=== PATIENT | female | born 1940 | race Caucasian/White ===

== ENCOUNTER → 2018-01-24 16:26 | Outpatient (REF) | payer MEDICARE, OTHER, SELFPAY ==
[2018-01-24 16:34] LABS: Basophils # 0.1 K/mm3 (0-0.2); Basophils % 0.8 % (0.1-2.0); Eosinophils # 0.3 K/mm3 (0.0-0.4); Eosinophils % 3.3 % (0.1-12.0); Hematocrit 45.6 % (37.0-47.0); Hemoglobin 14.5 g/dL (12.2-16.2); Lymphocytes # 2.8 K/mm3 (0.7-4.5); Lymphocytes % 37.1 K/mm3 (10-50); Mean Corpuscular HGB Conc 31.9 g/dL (31.8-35.4); Mean Corpuscular Hemoglobin 29.6 pg (27.0-31.2); Mean Corpuscular Volume 92.8 fl (81-99); Mean Platelet Volume 7.3 fl (7.4-10.4); Monocytes # 0.5 K/mm3 (0.1-1.0); Monocytes % 6.3 % (1.7-9.3); Neutrophils # 3.9 K/mm3 (1.8-7.8); Neutrophils % 52.5 % (37.0-80.0); Platelet Count 324 K/mm3 (142-424); Red Blood Count 4.91 M/mm3 (4.20-5.40); Red Cell Distribution Width 12.8 % (11.5-17.5); White Blood Count 7.5 K/mm3 (4.8-10.8)
[2018-01-24 18:17] LABS: Alanine Aminotransferase 25 U/L (12-78); Albumin Level 3.8 gm/dL (3.4-5.0); Albumin/Globulin Ratio 1.3 (1.1-1.8); Alkaline Phosphatase 90 U/L (46-116); Anion Gap 11.1 mEq/L (5-15); Aspartate Amino Transferase 15 U/L (15-37); Bilirubin,Total 0.5 mg/dL (0.2-1.0); Blood Urea Nitrogen 15 mg/dL (7-18); Calcium 10.2 mg/dL (8.5-10.1); Carbon Dioxide 30 mmol/L (21.0-32.0); Chloride 105 mmol/L (98-107); Chol/HDL Ratio 2.3 (1-3.5); Cholesterol 198 mg/dL (140-200); Creatinine,Serum 0.85 mg/dL (0.55-1.02); Estimated Glomerular Filt Rate 65 ml/min (>60); GFR (African American) 78 ML/MIN (>60); Globulin 2.9 gm/dl (1.3-3.2); Glucose 90 mg/dL (74-106); HDL Cholesterol 87 mg/dL (29-89); LDL Cholesterol 85 mg/dL (0-130); Potassium 4.1 mmoL/L (3.5-5.1); Sodium 142 mmol/L (136-145); Thyroid Stimulating Hormone 1.32 uIU/ml (0.358-3.740); Total Protein,Serum 6.7 gm/dL (6.4-8.2); Triglycerides 128 mg/dL (30-200); VLDL Cholesterol 26 mg/dL (0-40)
== END ==
LOC: LAB 16:26
PROVIDERS: Visit Provider Internal Medicine
DX: I10 Essential (primary) hypertension (principal); J44.9 Chronic obstructive pulmonary disease, unspecified; K21.9 Gastro-esophageal reflux disease without esophagitis; M15.0 Primary generalized (osteo)arthritis; E78.5 Hyperlipidemia, unspecified
CPT/HCPCS: 80053; 80061; 84443; 85025

== ENCOUNTER → 2019-06-10 16:51 | Outpatient (CLI) | payer MEDICARE, OTHER, SELFPAY ==
[2019-06-10 17:03] LABS: Basophils # 0.1 K/mm3 (0-0.2); Eosinophils # 0.2 K/mm3 (0.0-0.4); Eosinophils % 2.5 % (0.1-12.0); Hematocrit 44.4 % (37.0-47.0); Hemoglobin 14.5 g/dL (12.2-16.2); Lymphocytes # 2.6 K/mm3 (0.7-4.5); Lymphocytes % 35.3 % (10-50); Mean Corpuscular HGB Conc 32.7 g/dL (31.8-35.4); Mean Corpuscular Hemoglobin 30.7 pg (27.0-31.2); Mean Corpuscular Volume 93.9 fl (81-99); Mean Platelet Volume 7.6 fl (7.4-10.4); Monocytes # 0.5 K/mm3 (0.1-1.0); Monocytes % 6.7 % (1.7-9.3); Neutrophils % 54.6 % (37.0-80.0); Platelet Count 335 K/mm3 (142-424); Red Blood Count 4.73 M/mm3 (4.20-5.40); Red Cell Distribution Width 12.8 % (11.5-17.5); White Blood Count 7.3 K/mm3 (4.8-10.8)
[2019-06-10 18:02] LABS: Alanine Aminotransferase 16 U/L (12-78); Albumin Level 3.8 gm/dL (3.4-5.0); Albumin/Globulin Ratio 1.3 (1.1-1.8); Alkaline Phosphatase 77 U/L (46-116); Anion Gap 4.1 mEq/L (5-15); Aspartate Amino Transferase 12 U/L (15-37); Bilirubin,Total 0.5 mg/dL (0.2-1.0); Blood Urea Nitrogen 22 mg/dL (7-18); Calcium 10.2 mg/dL (8.5-10.1); Carbon Dioxide 28 mmol/L (21.0-32.0); Chloride 108 mmol/L (98-107); Cholesterol 196 mg/dL (140-200); Creatinine,Serum 0.95 mg/dL (0.55-1.02); Estimated Glomerular Filt Rate 57 ml/min (>60); GFR (African American) 69 ML/MIN (>60); Globulin 2.9 gm/dl (1.3-3.2); Glucose 86 mg/dL (74-106); HDL Cholesterol 96 mg/dL (29-89); LDL Cholesterol 85 mg/dL (0-130); Potassium 4.1 mmoL/L (3.5-5.1); Sodium 136 mmol/L (136-145); Thyroid Stimulating Hormone 2.25 uIU/ml (0.358-3.740); Total Protein,Serum 6.7 gm/dL (6.4-8.2); Triglycerides 77 mg/dL (30-200); VLDL Cholesterol 15 mg/dL (0-40)
== END ==
PROVIDERS: Visit Provider Internal Medicine
DX: I10 Essential (primary) hypertension (principal); E66.9 Obesity, unspecified; R53.83 Other fatigue; E78.5 Hyperlipidemia, unspecified; K21.9 Gastro-esophageal reflux disease without esophagitis; J44.9 Chronic obstructive pulmonary disease, unspecified; M17.0 Bilateral primary osteoarthritis of knee
CPT/HCPCS: 80053; 80061; 84443; 85025

== ENCOUNTER → 2019-06-25 16:05 | Outpatient (CLI) | payer MEDICARE, OTHER, SELFPAY ==
--- NOTE | 2019-06-25 16:11 | CA_ITS ---
APPROVED REPORT Bilateral Lower Extremity Venous Study for Pharmacy Salesperson: CT Indications Lower Extremity Pain: Right Vein Imaging CFV (L): compressive, spontaneous, phasic, augmentation FEM (L): compressive, spontaneous, phasic, augmentation POP (L): compressive, spontaneous, phasic, augmentation DFV (L): compressive, spontaneous, phasic, augmentation PTV (L): compressive, spontaneous, phasic, augmentation GSV (L): compressive, spontaneous, phasic, augmentation SSV (L): compressive, spontaneous, phasic, augmentation Peroneals (L):compressive, spontaneous, phasic, augmentation GAS (L): compressive, spontaneous, phasic, augmentation Findings No evidence of DVT or superficial thrombophlebitis in the veins scanned of the right lower extremity. Non-vascularized cystic structure visualized in the right popliteal fossa measuring approximately 4.8 cm C/W a ibanez's cyst. Conclusion No evidence of DVT or superficial thrombophlebitis in the veins scanned of the right lower extremity. Non-vascularized cystic structure visualized in the right popliteal fossa measuring approximately 4.8 cm C/W a ibanez's cyst. Critical Notification Critical Value: No Physician Notified Date: 06/25/2019 Time: 16:50 Physician Name: Khurram Response Time: 16:50 Report Read Back Electronically signed by : Daren Hammonds MD 06/26/2019 19:04:18
== END ==
PROVIDERS: PCP Internal Medicine; Visit Provider Internal Medicine
DX: M79.604 Pain in right leg (principal); M79.651 Pain in right thigh
CPT/HCPCS: 93971

== ENCOUNTER 2020-08-03 14:53 | Emergency (ER) | payer MEDICARE, OTHER, SELFPAY ==
[2020-08-03 15:10] VITALS: BP 145/85; PULSE 83; RESP 18; TEMP 36.9; O2SAT 97; BMI 30.1
--- NOTE | 2020-08-03 15:20 | HMH.EDUTC ---
[facility] [place] Clinical Impression: Bronchitis, Exposure to COVID-19 virus Disposition: Home, Self-Care Condition on Discharge: Good Instructions: Preventing the Spread of Coronavirus Discharge Instructions Additional Instructions: Drink plenty of fluids. Take tylenol or ibuprofen for pain or fever. Take the medications as directed. Follow up with your regular doctor. GO TO THE ER FOR ANY WORSENING SYMPTOMS Prescriptions: Benzonatate [Tessalon Perle 100mg Cap] 100 mg PO TIDP PRN #30 cap PRN Reason: Cough Transmission Status: Received by [facility] # Azithromycin [Z-Kenneth 250mg Tab*] 250 mg PO UD DOSE PK #6 tab Transmission Status: Received by [facility] # Referrals: Albert Paulson [Primary Care Provider] - Time of Disposition: 15:37 Medical Decision Making - Medical Records Medical records reviewed: No: I reviewed the patient's medical records. - Siddharth Inquiry Pt receiving controlled substance: No Vital Signs: 08/03/20 15:10 08/03/20 15:44 Temperature 98.5 F 98.5 F Temperature Source Oral Pulse Rate 83 Pulse Rate [Right Brachial] 83 Respiratory Rate 18 18 Blood Pressure 145/85 H Blood Pressure [Right Arm] 145/85 H Blood Pressure Mean [Right Arm] 105 Blood Pressure Source [Right Arm] Automatic Cuff Blood Pressure Position [Right Arm] Sitting 02 Sat by Pulse Oximetry 97 Oxygen Delivery Method Room Air Orders (Tests/Meds): ORDERS Category Date Time Status Covid-19 Nasal PCR Sendout Víctor Routine Lab 08/03/20 15:10 Received [facility] [place] - General Stated complaint: covid test Time Seen by Provider: 08/03/20 15:20 - History of Present Illness Provider Complaint: She c/o 1 week of cough, malaise, sinus congestion. 2 of her grand daughters have covid right now. - Related Data Home Medications Medication Instructions Recorded Confirmed Amlodipine Besylate [Amlodipine 5 mg PO DAILY 06/24/19 06/24/19 5mg tab] Lisinopril/Hydrochlorothiazide 1 tab PO DAILY 06/24/19 06/24/19 [Lisinopril-Hctz 20-25 mg Tab*] Naproxen 500 mg PO BIDP PRN 06/24/19 06/24/19 Previous Rx's Medication Instructions Recorded predniSONE [Prednisone 20mg 20 mg PO BID 4 Days #8 tab 06/24/19 Tab] Azithromycin [Z-Kenneth 250mg Tab*] 250 mg PO UD DOSE PK #6 tab 08/03/20 Benzonatate [Tessalon Perle 100mg 100 mg PO TIDP PRN #30 cap 08/03/20 Cap] Allergies Allergy/AdvReac Type Severity Reaction Status Date / Time codeine Allergy Verified 08/03/20 15:27 [facility] History - Hepatitis A Screen Attestation statement:: This patient has been screened for Hepatitis A risk factors. I have reviewed the patient's past medical history: Yes - Social History Smoking Status: Current every day smoker Tobacco Type: cigarettes # Packs/Day (cigarettes): 1 Alcohol Intake: never Occupational Status: other ROS Obtained: Yes All systems reviewed & no additional complaints - Constitutional Constitutional: Reports system reviewed and no additional complaints, except as docu - Eyes Eyes: Reports system reviewed and no additional complaints, except as docu - ENT Ears, Nose, Mouth, and Throat: Reports system reviewed and no additional complaints, except as docu - Cardiovascular Cardiovascular: Reports system reviewed and no additional complaints, except as docu - Respiratory Respiratory: Yes system reviewed and no additional complaints, except as docu - Gastrointestinal Gastrointestingal: Reports: system reviewed and no additional complaints, except as docu Physical Exam - General General appearance: alert, in no apparent distress - Head Head exam: atraumatic, normocephalic, normal inspection - Eye Eye exam: Present: normal appearance, PERRL, EOMI - ENT ENT exam: Present: normal exam, normal oropharynx, mucous membranes moist, TM's normal bilaterally, normal external ear exam - Neck Neck exam: Present: normal inspection, full ROM, tra
[2020-08-03 15:44] VITALS: BP 145/85; PULSE 83; RESP 18; TEMP 36.9; O2SAT 97
[2020-08-06 10:23] LABS: Covid-19 Nasal PCR Sendout Lex Positive
--- NOTE | 2020-08-06 11:03 | PC.NURSE ---
PT NOTIFIED OF POSITIVE COVID RESULTS
== END 2020-08-03 15:49 | disposition home or self-care (01) ==
PROVIDERS: Emergency Provider Nurse Practitioner Family; PCP Internal Medicine
DX: U07.1 COVID-19 (principal); F17.210 Nicotine dependence, cigarettes, uncomplicated
CPT/HCPCS: 99201; U0004

== ENCOUNTER 2020-08-10 11:02 | Outpatient (CLI) | payer MEDICARE, OTHER, SELFPAY ==
[2020-08-10] VITALS (9 sets, daily range): BP systolic 117–178; BP diastolic 32–84; PULSE 61–75; RESP 15–20; TEMP 36.7–36.8; O2SAT 92–98
--- NOTE | 2020-08-10 11:46 | PC.NURSE ---
Infusion started at this time time. No issues at this time.
--- NOTE | 2020-08-10 12:45 | PC.NURSE ---
infusion completed, no distress noted at this time. Pt tolerated well.
--- NOTE | 2020-08-10 13:48 | PC.NURSE ---
Pt tolerated well. Denies any issues at this time. States that her nose, face and feet feel alot warmer.
== END 2020-08-10 13:47 | disposition home or self-care (01) ==
PROVIDERS: PCP Internal Medicine; Visit Provider Internal Medicine
DX: U07.1 COVID-19 (principal)
CPT/HCPCS: 96365

== ENCOUNTER → 2021-04-21 15:49 | Outpatient (CLI) | payer MEDICARE, OTHER, SELFPAY ==
[2021-04-21 16:10] LABS: Basophils # 0.1 K/mm3 (0-0.2); Basophils % 1.2 % (0.1-2.0); Eosinophils # 0.2 K/mm3 (0.0-0.4); Eosinophils % 2.4 % (0.1-12.0); Hematocrit 44.1 % (37.0-47.0); Hemoglobin 14.3 g/dL (12.2-16.2); Lymphocytes # 2.8 K/mm3 (0.7-4.5); Mean Corpuscular HGB Conc 32.5 g/dL (31.8-35.4); Mean Corpuscular Hemoglobin 30.9 pg (27.0-31.2); Mean Corpuscular Volume 95.1 fl (81-99); Mean Platelet Volume 8.7 fl (7.4-10.4); Monocytes # 0.5 K/mm3 (0.1-1.0); Monocytes % 6.5 % (1.7-9.3); Neutrophils # 4.5 K/mm3 (1.8-7.8); Neutrophils % 54.9 % (37.0-80.0); Platelet Count 414 K/mm3 (142-424); Red Blood Count 4.64 M/mm3 (4.20-5.40); Red Cell Distribution Width 13.2 % (11.5-17.5); White Blood Count 8.1 K/mm3 (4.8-10.8)
== END ==
PROVIDERS: Visit Provider Internal Medicine
DX: R53.83 Other fatigue (principal)
CPT/HCPCS: 85025

== ENCOUNTER → 2022-07-04 13:55 | Outpatient (CLI) | payer MEDICARE, OTHER, SELFPAY ==
[2022-07-04 16:13] LABS: Basophils # 0.1 K/mm3 (0-0.2); Basophils % 1.2 % (0.1-2.0); Eosinophils # 0.1 K/mm3 (0.0-0.4); Hematocrit 45.4 % (37.0-47.0); Hemoglobin 14.2 g/dL (12.2-16.2); Lymphocytes # 2.4 K/mm3 (0.7-4.5); Lymphocytes % 34.9 % (10-50); Mean Corpuscular HGB Conc 31.2 g/dL (31.8-35.4); Mean Corpuscular Hemoglobin 30.4 pg (27.0-31.2); Mean Corpuscular Volume 97.4 fl (81-99); Mean Platelet Volume 8.3 fl (7.4-10.4); Monocytes # 0.4 K/mm3 (0.1-1.0); Monocytes % 5.5 % (1.7-9.3); Neutrophils # 3.9 K/mm3 (1.8-7.8); Neutrophils % 56.3 % (37.0-80.0); Platelet Count 381 K/mm3 (142-424); Red Blood Count 4.66 M/mm3 (4.20-5.40); White Blood Count 6.9 K/mm3 (4.8-10.8)
[2022-07-04 17:22] LABS: Alanine Aminotransferase 16 U/L (12-78); Albumin Level 4.1 g/dl (3.5-5.0); Albumin/Globulin Ratio 1.7 (1.1-1.8); Alkaline Phosphatase 113 U/L (38-126); Anion Gap 16.3 mEq/L (5-15); Aspartate Amino Transferase 27 U/L (14-36); Bilirubin,Total 0.4 mg/dl (0.2-1.3); Blood Urea Nitrogen 29 mg/dl (7-17); Calcium 10.4 mg/dl (8.4-10.2); Carbon Dioxide 29 mmol/L (22.0-30.0); Chloride 99 mmol/L (98-107); Cholesterol 207 mg/dl (140-200); Estimated Glomerular Filt Rate 53 ml/min (>60); GFR (African American) 64 ML/MIN (>60); Globulin 2.4 g/dL (1.3-3.2); Glucose 92 mg/dl (74-100); HDL Cholesterol 102 mg/dl (40-60); Potassium 4.3 mmoL/L (3.5-5.1); Sodium 140 mmol/L (136-145); Total Protein,Serum 6.5 g/dl (6.3-8.2); Triglycerides 82 mg/dl (30-150); VLDL Cholesterol 16 mg/dL (0-40)
[2022-07-04 17:33] LABS: Direct LDL Cholesterol 71.02 mg/dL (100-129)
== END ==
PROVIDERS: PCP Internal Medicine; Visit Provider Internal Medicine
DX: I10 Essential (primary) hypertension (principal); E78.5 Hyperlipidemia, unspecified; J44.9 Chronic obstructive pulmonary disease, unspecified; M15.0 Primary generalized (osteo)arthritis
CPT/HCPCS: 80053; 80061; 85025

== ENCOUNTER → 2022-08-16 15:33 | Outpatient (CLI) | payer MEDICARE, OTHER, SELFPAY ==
[2022-08-16 17:35] LABS: Blood Urea Nitrogen 29 mg/dl (7-17); Calcium 10.2 mg/dl (8.4-10.2); Carbon Dioxide 27 mmol/L (22.0-30.0); Chloride 104 mmol/L (98-107); Estimated Glomerular Filt Rate 47 ml/min (>60); GFR (African American) 57 ML/MIN (>60); Glucose 95 mg/dl (74-100); Sodium 139 mmol/L (136-145)
[2022-08-16 18:58] LABS: Ferritin 48.6 ng/ml (11.1-264)
== END ==
PROVIDERS: PCP Internal Medicine; Visit Provider Internal Medicine
DX: Z20.822 Contact with and (suspected) exposure to COVID-19 (principal); E83.52 Hypercalcemia; Z83.49 Family history of other endocrine, nutritional and metabolic diseases; D64.9 Anemia, unspecified
CPT/HCPCS: 80048; 82728; C9803; U0003; U0005

== ENCOUNTER → 2023-05-10 15:11 | Outpatient (CLI) | payer MEDICARE, OTHER, SELFPAY ==
--- NOTE | 2023-05-10 15:33 | XR_ITS ---
FINAL REPORT CLINICAL HISTORY: near syncope/dyspnea/abnl ecg/dizziness/palpitatio smoker x 60 years soa x 3 years FINDINGS: Cardiac silhouette measures at the upper limits of normal in size. Mild chronic changes are seen in both lungs. No localized infiltrates or effusions. IMPRESSION: 1. No evidence of acute infiltrate. Authenticated and ERN
[2023-05-10 15:45] LABS: Basophils # 0.1 K/mm3 (0-0.2); Basophils % 0.8 % (0.1-2.0); Eosinophils # 0.2 K/mm3 (0.0-0.4); Eosinophils % 2.2 % (0.1-12.0); Hematocrit 47.1 % (37.0-47.0); Lymphocytes # 2.3 K/mm3 (0.7-4.5); Lymphocytes % 33.7 % (10-50); Mean Corpuscular HGB Conc 31.9 g/dL (31.8-35.4); Mean Corpuscular Hemoglobin 30.3 pg (27.0-31.2); Mean Corpuscular Volume 95.2 fl (81-99); Mean Platelet Volume 7.3 fl (7.4-10.4); Monocytes # 0.4 K/mm3 (0.1-1.0); Monocytes % 5.7 % (1.7-9.3); Neutrophils # 3.9 K/mm3 (1.8-7.8); Neutrophils % 57.5 % (37.0-80.0); Platelet Count 290 K/mm3 (142-424); Red Blood Count 4.94 M/mm3 (4.20-5.40); Red Cell Distribution Width 13.2 % (11.5-17.5); White Blood Count 6.8 K/mm3 (4.8-10.8)
[2023-05-10 16:50] LABS: Chloride 106 mmol/L (98-107); Potassium 3.9 mmoL/L (3.5-5.1); Sodium 139 mmol/L (136-145)
[2023-05-10 16:52] LABS: Blood Urea Nitrogen 19 mg/dl (7-17); Estimated Glomerular Filt Rate 60 ml/min (>60); GFR (African American) 72 ML/MIN (>60)
[2023-05-10 16:53] LABS: Alanine Aminotransferase 22 U/L (12-78); Albumin Level 3.9 g/dl (3.5-5.0); Alkaline Phosphatase 87 U/L (38-126); Anion Gap 10.9 mEq/L (5-15); Aspartate Amino Transferase 33 U/L (14-36); Bilirubin,Direct 0.3 mg/dl (0.0-0.4); Bilirubin,Indirect 0.2 mg/dL (0.0-0.9); Bilirubin,Total 0.5 mg/dl (0.2-1.3); Bilirubin,Unconjugated 0.2 mg/dL (0.0-1.1); Calcium 9.6 mg/dl (8.4-10.2); Carbon Dioxide 26 mmol/L (22.0-30.0); Cholesterol 222 mg/dl (140-200); Glucose 96 mg/dl (74-100); Total Protein,Serum 6.2 g/dl (6.3-8.2); Triglycerides 126 mg/dl (30-150); VLDL Cholesterol 25 mg/dL (0-40)
[2023-05-10 16:54] LABS: Magnesium 1.8 mg/dl (1.6-2.3)
[2023-05-10 17:05] LABS: Direct LDL Cholesterol 82.56 mg/dL (100-129)
[2023-05-10 17:12] LABS: Free T4 (Free Thyroxine) 1.24 ng/dl (0.78-2.19)
[2023-05-10 17:28] LABS: Thyroid Stimulating Hormone 1.53 uIU/mL (0.465-4.68)
[2023-05-10 18:24] LABS: Chol/HDL Ratio 2.5 (1-3.5); HDL Cholesterol 90 mg/dl (40-60)
== END ==
PROVIDERS: PCP Internal Medicine; Visit Provider Physician Assistant
DX: R00.2 Palpitations (principal); R06.00 Dyspnea, unspecified; R42 Dizziness and giddiness; R55 Syncope and collapse; R94.31 Abnormal electrocardiogram [ECG] [EKG]; I10 Essential (primary) hypertension
CPT/HCPCS: 36415; 71046; 80048; 80061; 80076; 83735; 84439; 84443; 85025; 93225

== ENCOUNTER 2023-05-22 11:52 | Outpatient (CLI) | payer MEDICARE, OTHER, SELFPAY ==
[2023-05-22] VITALS (9 sets, daily range): BP systolic 99–194; BP diastolic 53–97; PULSE 46–65; RESP 16–17; TEMP 36.6; O2SAT 98–100; BMI 28.8
--- NOTE | 2023-05-22 11:53 | CT_ITS ---
APPROVED REPORT Exchange Clerk: CLINICAL INDICATION Chest Pain TECHNIQUE Image Acquisition: A 128 slice MDCT scanner ([employer]) was used for data acquisition. A noncontrast coronary calcium scan was performed. Bolus tracking in the ascending aorta with a threshold of 180 HU was performed. Immediately afterwards, ECG synchronized cardiac CT was then performed from the cardiac base to apex using retrospective gating with ECG tube current modulation. A total of 85 mL of Isovue 370 mg/mL contrast medium was administered at 5 mL/sec followed by a saline flush using a biphasic injection protocol. A tube voltage of 120 KVp was used. The patient received the following medications prior to the cardiac CT. 50 mg of oral metoprolol 5 mg of intravenous metoprolol. 0.8 mg of sublingual nitroglycerin. The average heart rate at the time of acquisition was 46 bpm and regular. Image Reconstruction Transaxial images were reconstructed at 0.67 mm slide thickness. Data was reviewed interactively on an advanced workstation capable of 2 and 3-dimensional displays in all conventional reconstruction formats, including multiplanar reformations, maximum intensity projections, curved multiplanar reformations, and volume rendered reconstructions. When applicable, selected routine images describing the relevant coronary anatomy and pathology were saved and sent to PACS. Complications None Technical Quality Overall image quality was good. Coronary artery opacification was adequate. Total DLP (Dose-Length Product) is 1428.7 mGy-cm. The reported value represents the total of one or more individual components during the CT acquisition of this date and at this time, and as such, the same value may appear in more than one CT report depending on the interpreting/reporting physicians. COMPARISON None FINDINGS CT Coronary Calcium Scoring LMA (Left Main Artery) = 45 LAD (Left Anterior Descending) = 0 LCX (Left Coronary Circumflex) = 0 RCA (Right Coronary Artery) = 29 Total Calcium Score = 73 using the AJ-130 method. The observed calcium score of 73 is at 35 percentile for subjects of the same age, sex, and race/ethnicity. The interpretation of the calcium heart score is based on the following continuum*: 0 = no calcified plaque detected (risk of coronary artery disease is very low ??? less than 5%) 1-10 = calcium detected in extremely minimal levels (risk of coronary diseases is still low ??? less than 10%) 11-100 = mild levels of plaque detected with certainty (mild or minimal narrowing of heart arteries is likely) 101-400 = definite,at least moderate levels of plaque detected (relatively high risk of a heart attack within 3-5 years) >401-999 = extensive levels of plaque detected (high risk of heart attack, high levels of vascular disease are present, high likelihood of at least one significant coronary narrowing) *The calcium heart score quantifies the burden of coronary calcification/plaque in the coronary arteries. The calcium heart score is not able to evaluate the presence or burden of non-calcified (i.e. soft) plaque. There is identifiable calcification in the ascending and descending aorta, as well as aortic valve. No identifiable calcification of the mitral annulus or mitral valve, pericardium, or myocardium. Coronary CT Angiography Coronaries have normal origin and proximal course. The coronary arterial system is right dominant. Note: Stenosis is reported as maximum percentage diameter stenosis. Stenosis grading is reported using the following scheme: Quantitative Stenosis Grading: Left Main (LM): The left main originates normally from the left sinus of Valsalva. The LM bifurcates into the left anterior descending artery and le
== END 2023-05-22 14:20 | disposition home or self-care (01) ==
PROVIDERS: PCP Internal Medicine; Visit Provider Physician Assistant
DX: R00.2 Palpitations (principal); R42 Dizziness and giddiness; R55 Syncope and collapse; R94.31 Abnormal electrocardiogram [ECG] [EKG]; R06.09 Other forms of dyspnea; I25.10 Atherosclerotic heart disease of native coronary artery without angina pectoris
CPT/HCPCS: 75574; Q9967

== ENCOUNTER → 2023-06-01 14:54 | Outpatient (CLI) | payer MEDICARE, OTHER, SELFPAY ==
--- NOTE | 2023-06-01 14:59 | CA_ITS ---
APPROVED REPORT EXAM: Comprehensive 2D, Doppler, and color-flow Echocardiogram Wire Mesh Filter Fabricator: Berna Marquis RVT Ht: 5 ft 4 in Wt: 163lbs BSA: 1.79 BP: 113/83 mmHg Indications: NEAR SYNCOPE,PALPS,ABN EKG,DIZZINESS 2D Dimensions LVOT 2.18 cm (M/F) 1.5-2.5 LA Volume 39.60 mL LA Volume Index 22.12 mL/m2 (M/F) 16-34 M-Mode Dimensions RVDd 2.66 cm (0.9-2.6) LA Diam 4.00 cm (1.9-4.0) LVDd 4.18 cm (3.5-5.7) Ao Diam 3.24 cm (2.0-3.7) LVDs 2.85 cm (3.5-5.7) IVSd 0.76 cm (0.6-1.1) PWd 0.61 cm (0.6-1.1) EF (Teich) 60.20% FS 31.80% EDV (Teich) 77.70 mL TAPSE 2.25 (<1.7) ESV (Teich) 30.90 mL LV Diastology E Decel Time 293.00 (160-240 msec) E/A Ratio 0.7 MED E' 5.60 (< 7 cm/sec) E'/MED E' Ratio 12.18 (>14) LAT E' 8.90 (<10 cm/sec) E/LAT E' Ratio 7.66 (>14) Aortic Valve AO Peak GR. 12.40 mmHg Mitral Valve MV E Max Alberto. 68.00 (40-130 cm/s) MV A Velocity 103.00 (40-130 cm/s) E/A Ratio 0.66 MV Decel. Time 293.00 (160-240 ms) MV PHT 86.00 ms Pulmonary Valve PV Peak Velocity 100.00 (50-150 cm/s) Tricuspid Valve TR P. Velocity 265.00 cm/s RAP Estimate 10.00 mmHg RVSP 38.00 mmHg Left Ventricle The left ventricle is normal size. The left ventricular systolic function is normal. The left ventricular ejection fraction is within the normal range. Proximal proximal septal thickness is noted. There is normal LV segmental wall motion. Transmitral Doppler flow pattern suggests impaired LV relaxation. LVEF is 60%. Right Ventricle The right ventricle is mildly dilated. The right ventricular systolic function is normal. Atria The left atrium size is normal. The right atrium size is normal. There is no Doppler evidence of interatrial shunt. Aortic Valve The aortic valve is trileaflet. The aortic valve opens well. There is no aortic valvular stenosis. No aortic regurgitation is present. Mitral Valve The mitral valve is normal in structure. No evidence of mitral valve stenosis. Mild mitral regurgitation. Tricuspid Valve Tricuspid valve leaflets are thin and pliable. Mild tricuspid regurgitation. RVSP is 25-30 mmHg. Pulmonic Valve The pulmonary valve is normal in structure. Trace pulmonic regurgitation. Great Vessels The aortic root is normal in size. The ascending aorta is normal in size. IVC is normal in size and collapses >50% with inspiration. Pericardium There is no pericardial effusion. Other Information Study Quality: Fair Conclusion Normal biventricular systolic function. Mild RV dilatation. Mild MR, mild TR. Electronically signed by : Melani Wong MD 06/03/2023 21:20:23
== END ==
PROVIDERS: PCP Internal Medicine; Visit Provider Physician Assistant
DX: R00.2 Palpitations (principal); R06.00 Dyspnea, unspecified; R42 Dizziness and giddiness; R55 Syncope and collapse; R94.31 Abnormal electrocardiogram [ECG] [EKG]
CPT/HCPCS: 93306

== ENCOUNTER → 2023-08-01 07:52 | Outpatient (CLI) | payer MEDICARE, OTHER, SELFPAY ==
--- NOTE | 2023-08-01 07:53 | CA_ITS ---
FINAL REPORT CLINICAL HISTORY: HTN,SMOKER FINDINGS: Aorta velocity: 95 cm/sec Right kidney: 9.5 cm. No evidence of hydronephrosis or mass. Right intrarenal RI: 0.65-0.73 Right renal artery velocity: 111 cm/sec. Right RAR (Renal artery-Aortic Ratio): 1.17 Left Kidney: 7.5 cm. No evidence of hydronephrosis or mass. Left intrarenal RI: 0.58-0.85 Left renal artery velocity: 140 cm/sec. Left RAR (Renal Artery-Aortic Ratio): 1.47 IMPRESSION: No evidence of significant renal artery stenosis. CT angiogram or postcontrast MR angiogram would be more sensitive for evaluation of possible renal artery stenosis. Reviewed, Interpreted and Dictated by Alberto Serrano MD Transcribed by Venkata Valdes Authenticated and [facility]
--- NOTE | 2023-08-01 08:34 | US_ITS ---
FINAL REPORT CLINICAL HISTORY: R55 - Syncope and collapse FINDINGS: The right kidney measures 10.4 cm in length. It is normal in echogenicity. There is no hydronephrosis. There is a cyst in the lower pole of the right kidney measuring 1 cm. The left kidney measures 9.3 cm in length. It is normal in echogenicity. There is no hydronephrosis. The spleen is unremarkable. IMPRESSION: Right renal cyst. Reviewed, Interpreted and Dictated by Alberto Serrano MD Transcribed by Erinn Mcdonnell Authenticated and [facility]
== END ==
PROVIDERS: PCP Internal Medicine; Visit Provider Internal Medicine
DX: I10 Essential (primary) hypertension (principal); R00.2 Palpitations; R06.00 Dyspnea, unspecified; R42 Dizziness and giddiness; R55 Syncope and collapse; R94.31 Abnormal electrocardiogram [ECG] [EKG]
CPT/HCPCS: 76770; 93976

== ENCOUNTER 2023-08-09 11:49 | Emergency (ER) | payer MEDICARE, OTHER, SELFPAY ==
[2023-08-09 12:15] VITALS: BP 151/88; PULSE 72; RESP 19; TEMP 37.1; O2SAT 97; BMI 28.1
--- NOTE | 2023-08-09 12:20 | EXP.UTC ---
Discharge Plan Disposition Patient Disposition: Home, Self-Care Condition: Good Prescriptions Prescriptions: New amoxicillin [amoxicillin] 875 mg tablet 875 mg PO Q12H Qty: 20 0RF methylprednisolone 4 mg Tablets,Dose Pack 4 mg PO DIRECTED Qty: 21 0RF benzonatate [benzonatate] 100 mg capsule 100 mg PO TIDP PRN (Reason: Cough) Qty: 30 0RF No Action multivitamin [Daily Multi-Vitamin] Tablet 1 tab PO DAILY omeprazole 20 mg capsule,delayed release(DR/EC) 20 mg PO DAILY Patient Comments: TAKE 1 CAPSULE BY MOUTH EVERY DAY aspirin 81 mg tablet,chewable 81 mg PO DAILY Calcium 600 + D(3) 600 mg-5 mcg (200 unit) capsule 600 cap PO AC biotin 1,000 mcg tablet,chewable 1,000 mcg PO DAILY amlodipine [Norvasc] 10 mg tablet 10 mg PO DAILY Qty: 30 2RF lisinopril-hydrochlorothiazide 20-25 mg tablet 2 tab PO DAILY Qty: 180 1RF naproxen 500 MG tablet 500 mg PO BIDP PRN (Reason: PAIN) Referrals Follow up/Referrals: Albert Paulson MD [Primary Care Provider] - See instructions Activity Restrictions/Add. Instructions Additional Instructions/Restrictions: Drink plenty of fluids. Take tylenol or ibuprofen for pain or fever. Take the medications as directed. Follow up with your regular doctor. GO TO THE ER FOR ANY WORSENING SYMPTOMS Clinical Impressions Clinical Impression: Sinusitis, Exposure to 2019 novel coronavirus Stand Alone Forms Stand Alone Forms: Work/School Release Instructions Patient Instructions: DI for Sinusitis, Coronavirus Disease 2019, Preventing the Spread of Coronavirus Discharge Instructions Discharge ED Provider: Connor Carroll [facility] General Stated complaint: ear pain sore throat fever Time Seen by Provider: 08/09/23 12:20 History of Present Illness Provider Complaint: She states that she has had chills, sinus congestion, ear pain and a sore throat for the past 3 days. She denies fever. Related Data Home Medications Medication Instructions Recorded Confirmed naproxen 500 mg tablet 500 mg PO BIDP PRN PAIN 06/24/19 08/09/23 aspirin 81 mg chewable tablet 81 mg PO DAILY Blood Thinner 05/10/23 08/09/23 biotin 1,000 mcg chewable tablet 1,000 mcg PO DAILY Supplement 05/10/23 08/09/23 calcium carbonate 600 mg-vitamin 600 cap PO AC supplemnt 05/10/23 08/09/23 D3 5 mcg (200 unit) capsule (Calcium 600 + D(3)) multivitamin (Daily Multi-Vitamin 1 tab PO DAILY Supplement 05/10/23 08/09/23 tablet) omeprazole 20 mg capsule,delayed 20 mg PO DAILY gerd 05/10/23 08/09/23 release Previous Rx's Medication Instructions Recorded amlodipine 10 mg tablet (Norvasc) 10 mg PO DAILY #30 tabs 06/06/23 amoxicillin 875 mg tablet 875 mg PO Q12H #20 tabs 08/09/23 benzonatate 100 mg capsule 100 mg PO TIDP PRN Cough #30 caps 08/09/23 lisinopril 20 2 tab PO DAILY Hypertension #180 08/09/23 mg-hydrochlorothiazide 25 mg tablet tabs methylprednisolone 4 mg tablets in 4 mg PO DIRECTED #21 tabs 08/09/23 a dose pack Allergies Allergy/AdvReac Type Severity Reaction Status Date / Time codeine Allergy Verified 08/09/23 12:36 [facility] Disclaimer: The information contained in this section may have been updated after the patient was seen, as this information can be updated by other users. Medical History (Updated 08/09/23 @ 12:47 by Connor Carroll APRN) Abnormal electrocardiogram [ECG] [EKG] CAD in [place] artery Dyspnea Hypertension Palpitations Premature atrial contraction Surgical History History of back surgery History of breast biopsy History of eye surgery History of tubal ligation Family History Other Family history of cancer Family history of diabetes mellitus type II Social History Smoking Status: Current every day smoker tobacco type: cigaret
[2023-08-09 12:36] LABS: UTC Influenza A Antigen Negative (Negative); UTC Strep Screen (Rapid) Negative (Negative)
[2023-08-09 12:37] LABS: UTC Influenza B Antigen Negative (Negative)
[2023-08-09 12:53] VITALS: BP 151/88; PULSE 72; RESP 18; TEMP 37.1; O2SAT 97
== END 2023-08-09 12:53 | disposition home or self-care (01) ==
PROVIDERS: Emergency Provider Nurse Practitioner Family; PCP Internal Medicine
DX: J01.90 Acute sinusitis, unspecified (principal); R50.9 Fever, unspecified; R07.0 Pain in throat; H92.03 Otalgia, bilateral; R09.81 Nasal congestion; F17.210 Nicotine dependence, cigarettes, uncomplicated; I25.10 Atherosclerotic heart disease of native coronary artery without angina pectoris; I10 Essential (primary) hypertension; K21.9 Gastro-esophageal reflux disease without esophagitis; Z20.822 Contact with and (suspected) exposure to COVID-19
CPT/HCPCS: 87635; 87804; 87880; 99204; 99212; G0463

== ENCOUNTER 2024-09-19 17:26 | Emergency (ER) | payer MEDICARE, OTHER, SELFPAY ==
--- NOTE | 2024-09-19 17:49 | ED_ITS ---
Discharge Plan Disposition Patient Disposition: Home, Self-Care Condition: Good Prescriptions Prescriptions: New benzonatate 100 mg capsule 100 mg PO TIDP PRN (Reason: Cough) Qty: 30 0RF methylprednisolone 4 mg Tablets,Dose Pack 4 mg PO DIRECTED 6 Days Qty: 21 0RF Rx Instructions: Take 1 pack as directed for 6 days cefdinir 300 mg capsule 300 mg PO BID Qty: 20 0RF lisinopril-hydrochlorothiazide 20-25 mg tablet 1 tab PO BID Qty: 20 0RF oseltamivir [Tamiflu] 75 mg capsule 75 mg PO BID 5 Days Qty: 10 0RF No Action multivitamin [Daily Multi-Vitamin] Tablet 1 tab PO DAILY aspirin 81 mg tablet,chewable 81 mg PO DAILY Calcium 600 + D(3) 600 mg-5 mcg (200 unit) capsule 600 cap PO AC biotin 1,000 mcg tablet,chewable 1,000 mcg PO DAILY lisinopril-hydrochlorothiazide 20-25 mg tablet 2 tab PO DAILY Qty: 180 1RF amlodipine [Norvasc] 10 mg tablet 10 mg PO DAILY Qty: 30 11RF naproxen 500 MG tablet 500 mg PO BIDP PRN (Reason: PAIN) Referrals Follow up/Referrals: Albert Paulson MD [Primary Care Provider] - See instructions Activity Restrictions/Add. Instructions Additional Instructions/Restrictions: Drink plenty of fluids. Take tylenol or ibuprofen for pain or fever. Take the medications as directed. Follow up with your regular doctor. GO TO THE ER FOR ANY WORSENING SYMPTOMS Clinical Impressions Clinical Impression: Bronchitis, Influenza A Stand Alone Forms Stand Alone Forms: Work/School Release Instructions Patient Instructions: DI for Sinusitis, DI for Acute Bronchitis, DI for Viral Syndrome Print Language Print Language: Kinyarwanda Discharge ED Provider: Connor Carroll [facility] HPI General Stated complaint: Cough,SOA, headache,eyes runny Time Seen by Provider: 09/19/24 17:49 History of Present Illness Provider Complaint: She states that for the past 3 days she has had fever, chills, and malaise. Today she began to have worsening sinus and chest congestion. Related Data Home Medications ?Medication ?Instructions ?Recorded ?Confirmed naproxen 500 mg tablet 500 mg PO BIDP PRN PAIN 06/24/19 09/19/24 aspirin 81 mg chewable tablet 81 mg PO DAILY Blood Thinner 05/10/23 09/19/24 biotin 1,000 mcg chewable tablet 1,000 mcg PO DAILY Supplement 05/10/23 09/19/24 calcium 600 mg (as 600 cap PO AC supplemnt 05/10/23 09/19/24 carbonate)-vitamin D3 5 mcg (200 unit) capsule (Calcium 600 + D(3)) multivitamin (Daily Multi-Vitamin 1 tab PO DAILY Supplement 05/10/23 09/19/24 tablet) Previous Rx's ?Medication ?Instructions ?Recorded lisinopril 20 2 tab PO DAILY Hypertension #180 08/09/23 mg-hydrochlorothiazide 25 mg tablet tabs amlodipine 10 mg tablet (Norvasc) 10 mg PO DAILY #30 tabs 10/26/23 benzonatate 100 mg capsule 100 mg PO TIDP PRN Cough #30 caps 09/19/24 cefdinir 300 mg capsule 300 mg PO BID #20 caps 09/19/24 lisinopril 20 1 tab PO BID #20 tabs 09/19/24 mg-hydrochlorothiazide 25 mg tablet methylprednisolone 4 mg tablets in 4 mg PO DIRECTED 6 days #21 tabs 09/19/24 a dose pack oseltamivir 75 mg capsule (Tamiflu) 75 mg PO BID 5 days #10 caps 09/20/24 Allergies Allergy/AdvReac Type Severity Reaction Status Date / Time codeine Allergy Verified 08/09/23 12:36 [facility] Disclaimer: The information contained in this section may have been updated after the patient was seen, as this information can be updated by other users. Medical History (Updated 09/20/24 @ 08:38 by Connor Carroll APRN) CAD in [place] artery Premature atrial contraction Hypertension Palpitations Dyspnea Abnormal electrocardiogram [ECG] [EKG] Surgical History History of tubal ligation History of breast biopsy History of eye surgery History of back surgery Family History Other Family history of cancer Family history of diabetes mellitus type II Social History Smoking Status: Current every day smoker tobacco type: cigarettes packs per day: 1 alcohol intake: never current occupational status: other Travel in the last 8 weeks: None Have you lived/traveled outside US in past 30 days?: No Contact w/someone who lives/traveled outside US past 30 days?: No Exposure to someone with infectious disease in past 14 days?: No Do you have a fever (greater than 100.4 F or 38 C)?: Yes Have you tested positive for COVID-19: No Exposed to someone with COVID-19 in past 14 days?: No Do you have a sore throat?: Yes Do you have a cough?: Yes Do you have any weakness?: Yes Do you have any diarrhea?: No Are you experiencing any unusual bleeding?: No Do you have any muscle aches/pain?: No Do you have any abdominal pain?: No Are you experiencing loss of taste or smell?: No ROS Obtained: Yes All systems reviewed & no additional complaints except as d ocumented Constitutional Constitutional: Reports chills and Reports fever(s) Eyes Eyes: Denies eye discharge ENT Ears, Nose, Mouth, and Throat: Reports as per HPI Cardiovascular Cardiovascular: Denies chest pain Respiratory Respiratory: Denies chest congestion and Reports cough Gastrointestinal Gastrointestingal: Reports nausea; Denies abdominal pain, constipation, cramping, diarrhea or vomiting Musculoskeletal Musculoskeletal: Denies arthralgias Integumentary/Breasts Skin/Breast: Denies rash Neurologic Neurologic: Denies paresthesias Physical Exam General General appearance: alert and in no apparent distress Eye Eye exam: Present normal appearance, PERRL and EOMI ENT ENT exam: Present mucous membranes moist and normal external ear exam Expanded ENT Exam External ear exam: Present normal external inspection TM/Canal exam: Bilateral TM: erythema and bulging Nose exam: Absent sinus tenderness Nasal speculum exam: Bilateral: normal Mouth exam: Present normal external inspection; Absent drooling Teeth exam: Present normal inspection Throat exam: Present tonsillar erythema and tonsillomegaly Neck Neck exam: Present normal inspection, full ROM and trachea midline; Absent tenderness, lymphadenopathy or thyromegaly Chest Chest inspection: Present normal inspection and symmetric chest wall rise; Absent tenderness or rash Respiratory Respiratory exam: Present normal lung sounds bilaterally; Absent respiratory distress, wheezes, stridor or accessory muscle use Cardiovascular Cardiovascular exam: Present regular rate, normal rhythm and normal heart sounds Abdominal Exam Abdominal exam: Present soft; Absent distention, tenderness, guarding, rebound or rigidity Extremities Exam Extremities exam: Present normal inspection, full ROM and normal capillary refill; Absent tenderness or calf tenderness Back Exam Back exam: Present normal inspection and full ROM; Absent tenderness Neurological Exam Neurological exam: Present alert and oriented X3 Psychiatric Psychiatric exam: Present normal affect and normal mood Skin Skin exam: Present warm, dry, intact and normal color Lymphatic Lymphatic Findings: no adenopathy Medical Decision Making Medical Records Medical records reviewed: No I reviewed the patient's medical records. Screening: Per USPSTF and CDC recommendations, given the prevalence of disease in our region, it is our hospital?s policy to screen for HIV and viral Hepatitis for all patients aged 18 and over and those with ongoing risk factors. Siddharth Inquiry Pt receiving controlled substance: No Lab Data Lab results reviewed: Yes I reviewed the patient's lab results.
--- NOTE | 2024-09-19 17:52 | XR_ITS ---
PROCEDURE INFORMATION: Exam: XR Chest Exam date and time: 09/19/2024 6:05 PM Age: 84 years old Clinical indication: Shortness of breath; Additional info: SOA TECHNIQUE: Imaging protocol: Radiologic exam of the chest. Views: 2 views. COMPARISON: CR XR CHEST 2V 05/10/2023 3:38 PM FINDINGS: Lungs: Unremarkable. No consolidation. Pleural spaces: Unremarkable. No pleural effusion. No pneumothorax. Heart/Mediastinum: Unremarkable. No cardiomegaly. Bones/joints: Unremarkable. IMPRESSION: No acute findings.
[2024-09-19 17:59] VITALS: BP 161/84; PULSE 87; RESP 20; TEMP 37; O2SAT 94; BMI 29.2
[2024-09-19 18:05] LABS: UTC Influenza A Antigen Negative (Negative); UTC Influenza B Antigen Negative (Negative)
[2024-09-19 18:52] VITALS: BP 161/84; PULSE 87; RESP 20; TEMP 37
[2024-09-19] MEDS: DEXAMETHASONE 4MG/ML 1ML VIAL 8 MG IM (18:56)
[2024-09-19 19:08] LABS: Coronavirus 19, PCR Not Detected (NotDetected); Human Rhinovirus Not Detected (NotDetected); Influenza B, PCR Not Detected (NotDetected); Respiratory Syncytial Virus Not Detected (NotDetected)
[2024-09-19 21:03] LABS: Influenza A, PCR Detected (NotDetected)
== END 2024-09-19 19:09 | disposition home or self-care (01) ==
PROVIDERS: Emergency Provider Nurse Practitioner Family; PCP Internal Medicine
DX: J20.9 Acute bronchitis, unspecified (principal); J09.X2 Influenza due to identified novel influenza A virus with other respiratory manifestations
CPT/HCPCS: 71046; 87631; 87804; 99212; G0381; J1100

== ENCOUNTER 2024-10-17 12:15 | Outpatient (CLI) | payer MEDICARE, OTHER, SELFPAY ==
[2024-10-17 13:32] LABS: Basophils # 0.1 K/mm3 (0-0.2); Basophils % 1.4 % (0.1-2.0); Eosinophils # 0.3 K/mm3 (0.0-0.4); Eosinophils % 4.8 % (0.1-12.0); Hematocrit 43.2 % (37.0-47.0); Hemoglobin 14.3 g/dL (12.2-16.2); Lymphocytes # 1.9 K/mm3 (0.7-4.5); Lymphocytes % 29.9 % (10-50); Mean Corpuscular HGB Conc 33.1 g/dL (31.8-35.4); Mean Corpuscular Hemoglobin 30.5 pg (27.0-31.2); Mean Corpuscular Volume 92.1 fl (81-99); Mean Platelet Volume 9.3 fl (7.4-10.4); Monocytes # 0.5 K/mm3 (0.1-1.0); Monocytes % 8.3 % (1.7-9.3); Neutrophils # 3.6 K/mm3 (1.8-7.8); Platelet Count 287 K/mm3 (142-424); Red Blood Count 4.69 M/mm3 (4.20-5.40); Red Cell Distribution Width 13.9 % (11.5-17.5); White Blood Count 6.5 K/mm3 (4.8-10.8)
[2024-10-17 13:43] LABS: Corrected White Blood Count 6.6 K/mm3 (4.8-10.8)
[2024-10-17 13:56] LABS: Alanine Aminotransferase 20 U/L (12-78); Albumin Level 4.3 g/dl (3.5-5.0); Albumin/Globulin Ratio 1.9 (1.1-1.8); Alkaline Phosphatase 84 U/L (38-126); Anion Gap 12.2 mEq/L (5-15); Aspartate Amino Transferase 28 U/L (14-36); Bilirubin,Total 0.4 mg/dl (0.2-1.3); Blood Urea Nitrogen 29 mg/dl (7-17); Calcium 10.2 mg/dl (8.4-10.2); Carbon Dioxide 27 mmol/L (22.0-30.0); Chloride 105 mmol/L (98-107); Estimated Glomerular Filt Rate 47 ml/min (>60); GFR (African American) 57 ML/MIN (>60); Globulin 2.3 g/dL (1.3-3.2); Glucose 107 mg/dl (74-100); Potassium 4.2 mmoL/L (3.5-5.1); Sodium 140 mmol/L (136-145); Total Protein,Serum 6.6 g/dl (6.3-8.2)
[2024-10-17 14:11] LABS: Free T4 (Free Thyroxine) 1.22 ng/dl (0.78-2.19)
[2024-10-17 14:23] LABS: Cholesterol 250 mg/dl (140-200); Triglycerides 112 mg/dl (30-150); VLDL Cholesterol 22 mg/dL (0-40)
[2024-10-17 14:34] LABS: Direct LDL Cholesterol 90.27 mg/dL (100-129)
[2024-10-17 14:35] LABS: Chol/HDL Ratio 2.3 (1-3.5); HDL Cholesterol 107 mg/dl (40-60)
== END 2024-10-17 23:59 | disposition home or self-care (01) ==
LOC: LAB.DROPOF 10-18 13:18
PROVIDERS: PCP Internal Medicine; Visit Provider Internal Medicine
DX: I11.9 Hypertensive heart disease without heart failure (principal); I25.10 Atherosclerotic heart disease of native coronary artery without angina pectoris; R55 Syncope and collapse; E78.5 Hyperlipidemia, unspecified; I49.9 Cardiac arrhythmia, unspecified; F17.210 Nicotine dependence, cigarettes, uncomplicated
CPT/HCPCS: 80053; 80061; 84439; 84443; 85025

== ENCOUNTER 2024-10-23 09:35 | Outpatient (CLI) | payer MEDICARE, OTHER, SELFPAY ==
[2024-10-23 11:11] LABS: D-Dimer 0.64 ug/mL (0.0-0.5)
== END 2024-10-23 23:59 | disposition home or self-care (01) ==
LOC: RT 09:36
PROVIDERS: PCP Internal Medicine; Visit Provider Nurse Practitioner
DX: R55 Syncope and collapse (principal); R01.1 Cardiac murmur, unspecified; R94.31 Abnormal electrocardiogram [ECG] [EKG]; I48.91 Unspecified atrial fibrillation; R06.09 Other forms of dyspnea
CPT/HCPCS: 36415; 85378; 93270

== ENCOUNTER 2024-10-29 11:00 | Outpatient (CLI) | payer MEDICARE, OTHER, SELFPAY ==
--- NOTE | 2024-10-29 11:01 | CT_ITS ---
FINAL REPORT TECHNIQUE: The patient was injected with IV contrast. Axial images were obtained through the chest in a PE protocol. 3-D reconstruction images were also performed. Individualized dose reduction techniques using automated exposure control or adjustment of the MA and/or KV according to patient's size were employed. CLINICAL HISTORY: positive d-dimer COMPARISON: None FINDINGS: Mediastinal vasculature is adequately opacified. No pulmonary artery filling defects are identified to suggest PE. There is no aortic dissection. There is no axillary adenopathy. There is no hilar or mediastinal adenopathy. The heart size is normal. There is no pericardial or pleural effusion. Limited images of the upper abdomen are unremarkable. No suspicious infiltrate or nodule is identified. Note is made of advanced degenerative disc disease in the mid and lower thoracic spine, with minimal spondylolisthesis noted at the thoracolumbar junction. IMPRESSION: No pulmonary embolus or dissection. 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 Reviewed, Interpreted and Dictated by Alberto Serrano MD Transcribed by Norma Leblanc Authenticated and [facility]
[2024-10-29] MEDS: SODIUM CHLORIDE 0.9% 10ML SYR (RAD ONLY) 10 ML IV (11:19)
[2024-10-29] MEDS: 0.9 % SODIUM CHLORIDE 50 ML VIAL IV (11:19)
[2024-10-29] MEDS: IOPAMIDOL-370 (76%);100ML BOTTLE 85 ML IV (11:20)
== END 2024-10-29 23:59 | disposition home or self-care (01) ==
LOC: RAD 11:01
PROVIDERS: PCP Internal Medicine; Visit Provider Nurse Practitioner
DX: I25.10 Atherosclerotic heart disease of native coronary artery without angina pectoris (principal); R94.31 Abnormal electrocardiogram [ECG] [EKG]; R01.1 Cardiac murmur, unspecified; I48.0 Paroxysmal atrial fibrillation; I49.9 Cardiac arrhythmia, unspecified; R55 Syncope and collapse; R00.2 Palpitations; I10 Essential (primary) hypertension; I49.1 Atrial premature depolarization; R42 Dizziness and giddiness
CPT/HCPCS: 71275; Q9967

== ENCOUNTER 2024-11-13 11:41 | Outpatient (CLI) | payer MEDICARE, OTHER, SELFPAY ==
--- NOTE | 2024-11-13 | CA_ITS ---
APPROVED REPORT Exam: Pharmacologic Technologist: Gabbie Gonzalez Ht: 5 ft 0 in Wt: 148 lbs BSA: 1.64 m2 HR: 68 bpm BP: 158/56 mmHg Stress Test Details Test: Lexiscan HR Resting HR: 68 bpm Max Heart Rate (APMHR): 135.437704 bpm Max HR Achieved: 80 bpm Target HR (85% APMHR): 114.400458 bpm % of APMHR: 59.26 Recovery HR: 73 bpm BP Resting BP: 158.0/56.0 mmHg Max BP: 158.0/56.0 mmHg Recovery BP: 140.0/58.0 mmHg ECG Resting ECG: Normal sinus rhythm, frequent PVC's - multifocal Stress ECG Conclusion Symptoms: No chest pain Arrhythmias/Ectopy: Ventricular bigeminy ST-T Changes: < 1.[address] segment changes. Conclusion: Non-diagnostic Lexiscan stress test. Electronically signed by : Melani Wong MD 11/14/2024 12:06:57
--- NOTE | 2024-11-13 11:42 | NM_ITS ---
APPROVED REPORT Exam: Nuclear Stress Test Indication: htn, tob use, fm hx, sob, syncopal episode Patient Location: Outpatient Stress Tech: Gabbie Gonzalez [place] Tech:Katie Blake TANIAIfrah RT (R)(N)(M) Ht: 5 ft 2 in Wt: 150 lbs Bra Size: d HR: 68 bpm BP: 158/56 mmHg BSA: 1.69 m2 TID: 1.11 BMI: 27.4 History: htn, tob use, fm hx, sob, syncopal episode pt could not lay on stomach for prone images due to torn left shoulder Procedure: Patient received 0.4 mg of intravenous Lexiscan, resting heart rate 65 bpm, resting blood pressure 158/56 mmHg, with Lexiscan maximum heart rate achieved was 83 bpm which is % of the maximum predicted heart rate and blood pressure was 148/78 mmHg. With Lexiscan, patient denied any complaint of chest pain. Cardiac Stress and Resting SPECT Images: Cardiac Stress and Resting SPECT images were obtained using technetium 99m Myoview 32.1 mCi stress and 10.49 mCi at rest. Technically difficult study due 2 significant radiotracer uptake in the GI tract in close proximity to the inferior LV wall. The patient also could not lie on his abdomen, therefore prone stress imaging could not be performed. This may affect the diagnostic interpretation of the study findings. Resting and stress imaging in supine positions demonstrate a medium sized, moderate, partially reversible perfusion defect in the inferior LV wall. Gated imaging demonstrates normal global and regional LV systolic function. LVEF is calculated at 58%. Conclusion: Technically difficult study. Medium sized, moderate, partially reversible perfusion defect in the inferior LV wall. Findings may be due to artifact, but true perfusion defect /ischemia cannot be ruled out. Gated imaging demonstrates normal global and regional LV systolic function. LVEF is calculated at 58%. Electronically signed by : Melani Wong MD 11/14/2024 12:32:45
[2024-11-13] MEDS: ISOTOPE MYOVIEW (PER STUDY) 1 DOSE IV (12:53)
[2024-11-13] MEDS: SODIUM CHLORIDE 0.9% 10ML SYR (RAD ONLY) 10 ML IV ×2 (12:53)
[2024-11-13] MEDS: REGADENOSON 0.4MG/5ML SYRINGE 0.4 MG IV (12:53)
--- NOTE | 2024-11-13 12:57 | CA_ITS ---
FINAL REPORT TECHNIQUE: Oh scale, color and spectral doppler images of the bilateral carotid arteries were obtained. CLINICAL HISTORY: CP, dyspnea, murmur, smoker, syncope, HTN, AFIB. COMPARISON: None FINDINGS: Peak systolic velocity in the right internal carotid artery is 87.3 cm/sec. The internal carotid to common carotid artery ratio is 1.4. There is no significant carotid artery stenosis and mild plaque formation. The right vertebral artery is normal in direction. Peak systolic velocity in the left internal carotid artery is 76 cm/sec. The internal carotid to common carotid artery ratio is 0.96. There is no significant carotid artery stenosis and mild plaque formation. The left vertebral artery is normal in direction. IMPRESSION: No ultrasound evidence of hemodynamically significant carotid artery stenosis. Normal peak systolic velocities and normal internal to common carotid artery ratios bilaterally. Reviewed, Interpreted and Dictated by Linnea Mott MD Transcribed by Norma Leblanc Authenticated and [facility]
--- NOTE | 2024-11-13 12:57 | CA_ITS ---
APPROVED REPORT EXAM: Comprehensive 2D, Doppler, and color-flow Echocardiogram Embedded Engineer: Flori Clements RT(R) Ht: 5 ft 0 in Wt: 148lbs BSA: 1.64 BP: 167/80 mmHg Indications: CP, dyspnea, murmur, smoker, palpitations, syncope, VELAZQUEZ, AFIB, smoker, HTN 2D Dimensions LVEF (Rebolledo's) 63.40 % F: 54 - 74 LV Volume 88.60 mL F: 46 - 106 LV Volume Index 54.0 mL/m2 F: 29 - 61 LA Volume 40.80 mL LA Volume Index 24.88 mL/m2 (M/F) 16-34 EF AP4 69.50 % EF AP2 57.0 % EF BP 63.4 % GL Strain -19.2 % M-Mode Dimensions RVDd 2.70 cm (0.9-2.6) LA Diam 4.42 cm (1.9-4.0) LVDd 4.67 cm (3.5-5.7) LVDs 3.26 cm (3.5-5.7) IVSd 0.80 cm (0.6-1.1) PWd 0.95 cm (0.6-1.1) EF (Teich) 57.50% FS 30.20% EDV (Teich) 100.80 mL ESV (Teich) 42.80 mL LV Diastology E Decel Time 237 (160-240 msec) E/A Ratio 0.9 Mitral Valve MV E Max Alberto. 88.0 (40-130 cm/s) MV A Velocity 96.0 (40-130 cm/s) E/A Ratio 0.92 MV PHT 69.0 ms Tricuspid Valve TR P. Velocity 280.00 cm/s RAP Estimate 10.00 mmHg RVSP 41.40 mmHg Left Ventricle The left ventricle is normal size. The left ventricular systolic function is normal. The left ventricular ejection fraction is within the normal range. There is increased LV wall thickness. There is normal LV segmental wall motion. The left ventricular diastolic function is normal. LVEF is 55%. Right Ventricle The right ventricle is normal size. The right ventricular systolic function is normal. Atria Left atrium is mildly dilated. Right atrium is mildly dilated. There is no Doppler evidence of interatrial shunt. Aortic Valve Aortic valve is mildly thickened. There is no aortic valvular stenosis. Trace aortic regurgitation is present. Mitral Valve The mitral valve is normal in structure. No evidence of mitral valve stenosis. Mild to moderate mitral regurgitation. Tricuspid Valve Tricuspid valve is grossly normal in structure and function. Mild to moderate tricuspid regurgitation. RVSP 25-30 mmHg. Pulmonic Valve The pulmonary valve is normal in structure. Trace pulmonic regurgitation. Great Vessels The aortic root is normal in size. IVC is normal in size and collapses >50% with inspiration. Pericardium There is no pericardial effusion. Other Information Study Quality: Fair Conclusion Normal biventricular systolic function. Mild biatrial dilation. Mild to moderate MR, mild to moderate TR. Electronically signed by : Melani Wong MD 11/24/2024 23:40:01
== END 2024-11-13 23:59 | disposition home or self-care (01) ==
LOC: RAD 11:42
PROVIDERS: PCP Internal Medicine; Visit Provider Nurse Practitioner
DX: I25.10 Atherosclerotic heart disease of native coronary artery without angina pectoris (principal); R55 Syncope and collapse; R06.09 Other forms of dyspnea; R94.31 Abnormal electrocardiogram [ECG] [EKG]; R01.1 Cardiac murmur, unspecified; I48.91 Unspecified atrial fibrillation; R42 Dizziness and giddiness
CPT/HCPCS: 78452; 93017; 93018; 93306; 93880; A9502; J2785

== ENCOUNTER 2025-01-01 08:02 | Day surgery (SDC) | payer MEDICARE, OTHER, SELFPAY ==
[2025-01-01] VITALS (12 sets, daily range): BP systolic 108–171; BP diastolic 54–80; PULSE 53–64; RESP 16–18; TEMP 36.6–36.9; O2SAT 93–97
--- NOTE | 2025-01-01 07:11 | IR_ITS ---
APPROVED REPORT Patient Location: Outpatient PROCEDURES Left heart catheterization Left ventriculogram Selective coronary angiogram INDICATION Abnormal Myoview, Angina pectoris Informed consent was obtained prior to the procedure. COMPLICATIONS NONE Estimated Blood Loss: LESS THAN 10 ML TECHNIQUE One percent lidocaine used to anesthetize the right anterior aspect of the wrist. The right radial artery was accessed via the Seldinger technique. A 6 Japanese sheath was placed in the right radial artery. 2.5 mg of Verapamil, 800 mcg of nitroglycerin, 1mg Lidocaine and 5000 U Heparin were given through the arterial sheath. An advantage wire was used to traverse the tortuous radial artery. The JL3 catheter was also used to perform left heart catheterization, left ventriculogram and selective coronary angiogram. At the end of the procedure the sheath was removed good hemostasis was achieved using Traclet band, patient was transferred to the postop holding area in stable condition. ANGIOGRAPHIC RESULTS The left main artery Normal The left anterior descending artery Proximal 10% luminal irregularities with mid vessel smooth 20 to 30% stenosis The circumflex artery Mild 10% luminal regularities The right coronary artery Large dominant with diffuse 10% luminal regularities The SMALL ventriculogram reveals Normal 60% The left ventricular end-diastolic pressure 10 to 15 mmHg IMPRESSION Mild nonocclusive coronary artery disease Normal ejection fraction Normal LVEDP PLAN 1. Evaluation of noncardiac symptoms 2. Risk factor modification Electronically signed by : Mathew Soriano MD 01/01/2025 10:13:18
[2025-01-01 08:45] LABS: Basophils # 0.1 K/mm3 (0-0.2); Basophils % 1.9 % (0.1-2.0); Eosinophils # 0.2 Kmm3 (0.0-0.4); Hematocrit 40.6 % (37.0-47.0); Hemoglobin 13.5 g/dL (12.2-16.2); Immature Granulocytes # 0.01 10^3uL; Immature Granulocytes % 0.2 %; Lymphocytes # 1.8 K/mm3 (0.7-4.5); Lymphocytes % 31.3 % (10-50); Mean Corpuscular HGB Conc 33.3 g/dL (31.8-35.4); Mean Corpuscular Hemoglobin 30.9 pg (27.0-31.2); Mean Corpuscular Volume 92.9 fl (81-99); Monocytes # 0.6 K/mm3 (0.1-1.0); Monocytes % 10.7 % (1.7-9.3); Neutrophils % 52.9 % (37.0-80.0); Nucleated Red Blood Cells # 0 10^3/uL; Nucleated Red Blood Cells % 0 %; Platelet Count 263 K/mm3 (142-424); Red Blood Count 4.37 M/mm3 (4.20-5.40); Red Cell Distribution Width 13.2 % (11.5-17.5); Red Cell Distribution Width-SD 44.6 fL; White Blood Count 5.7 K/mm3 (4.8-10.8)
[2025-01-01 09:04] LABS: Anion Gap 6.9 mEq/L (5-15); Blood Urea Nitrogen 26 mg/dl (7-17); Calcium 9.4 mg/dl (8.4-10.2); Carbon Dioxide 25 mmol/L (22.0-30.0); Chloride 110 mmol/L (98-107); Creatinine Clearance Estimated 41 mL/min (50-200); Estimated Glomerular Filt Rate 47 ml/min (>60); GFR (African American) 57 ML/MIN (>60); Glucose 109 mg/dl (74-100); Potassium 3.9 mmoL/L (3.5-5.1); Sodium 138 mmol/L (136-145)
[2025-01-01] MEDS: NITROGLYCERIN 800MCG/8ML SYR (CATH LAB) 800 MCG IA (09:48)
[2025-01-01] MEDS: LIDOCAINE 1% 10ML MDV 10 ML IJ (09:48)
[2025-01-01] MEDS: VERAPAMIL 2.5MG/ML 2ML VIAL 2.5 MG IV (09:48)
[2025-01-01] MEDS: 0.9 % SODIUM CHLORIDE 500 ML 25 ML IV (09:49)
[2025-01-01] MEDS: HEPARIN 1,000 UNITS/500ML NS (CATH LAB) 3000 UNIT IV (09:49)
[2025-01-01] MEDS: diphenhydrAMINE 50MG/ML VIAL 50 MG IV (09:49)
[2025-01-01] MEDS: HEPARIN 1,000 UNITS/ML 10ML VIAL (CATH LAB) 5000 UNIT IV (09:49)
[2025-01-01] MEDS: MIDAZOLAM HCL 1MG/ML 5ML VIAL 1 MG IV (10:09)
[2025-01-01] MEDS: FENTANYL 100MCG/2ML VIAL 50 MCG IV (10:09)
[2025-01-01] MEDS: IOPAMIDOL-370 (76%);100ML BOTTLE 60 ML IV (13:18)
== END 2025-01-01 13:38 | disposition home or self-care (01) ==
LOC: CATHLAB 08:04
PROVIDERS: PCP Internal Medicine; Visit Provider Internal Medicine
DX: I25.118 Atherosclerotic heart disease of native coronary artery with other forms of angina pectoris (principal); R93.1 Abnormal findings on diagnostic imaging of heart and coronary circulation; R55 Syncope and collapse; F17.210 Nicotine dependence, cigarettes, uncomplicated; I48.0 Paroxysmal atrial fibrillation; Z79.01 Long term (current) use of anticoagulants; Z79.899 Other long term (current) drug therapy; Z79.51 Long term (current) use of inhaled steroids; I10 Essential (primary) hypertension; R94.31 Abnormal electrocardiogram [ECG] [EKG]
CPT/HCPCS: 80048; 85025; 93458; 99152; C1725; C1769; J1200; J1644; J3010; Q9967

== ENCOUNTER 2025-03-19 16:43 | Outpatient (CLI) | payer MEDICARE, OTHER, SELFPAY ==
[2025-03-19 13:36] LABS: Hematocrit 45.5 % (37.0-47.0); Hemoglobin 14.5 g/dL (12.2-16.2); Immature Granulocytes % 0.3 %; Mean Corpuscular HGB Conc 31.9 g/dL (31.8-35.4); Mean Corpuscular Hemoglobin 29.8 pg (27.0-31.2); Mean Corpuscular Volume 93.6 fl (81-99); Nucleated Red Blood Cells % 0 %; Platelet Count 316 K/mm3 (142-424); Red Blood Count 4.86 M/mm3 (4.20-5.40); Red Cell Distribution Width-SD 45.5 fL; White Blood Count 6.8 K/mm3 (4.8-10.8)
[2025-03-19 14:16] LABS: Alanine Aminotransferase 20 U/L (12-78); Albumin Level 4.4 g/dl (3.5-5.0); Albumin/Globulin Ratio 2.0 (1.1-1.8); Alkaline Phosphatase 88 U/L (38-126); Anion Gap 10.9 mEq/L (5-15); Aspartate Amino Transferase 40 U/L (14-36); Bilirubin,Total 0.4 mg/dl (0.2-1.3); Blood Urea Nitrogen 29 mg/dl (7-17); Calcium 10.8 mg/dl (8.4-10.2); Carbon Dioxide 29 mmol/L (22.0-30.0); Chloride 104 mmol/L (98-107); Cholesterol 166 mg/dl (140-200); Creatinine,Serum 1.30 mg/dl (0.52-1.04); Estimated Glomerular Filt Rate 39 ml/min (>60); GFR (African American) 47 ML/MIN (>60); Globulin 2.2 g/dL (1.3-3.2); Glucose 98 mg/dl (74-100); HDL Cholesterol 102 mg/dl (40-60); Potassium 4.9 mmoL/L (3.5-5.1); Sodium 139 mmol/L (136-145); Total Protein,Serum 6.6 g/dl (6.3-8.2); Triglycerides 115 mg/dl (30-150)
--- OUTSIDE RECORDS SUMMARY | 2025-03-19 16:45 | XMS_ITS | Clinical Summary ---
Author Organization [facility] Address [address] [place] [address] Phone Care Team Providers Care Clerical And Office Support Workers Name Role Phone Unavailable Primary Care Provider Unavailabl e Social History Tobacco Use Types Packs/Day Years Used Date Smoking Tobacco: Never Assessed Comments Unknown Sex and Gender Information Value Date Recorded Sex Assigned at Not on file Legal Sex Female 5:07 AM EDT Gender Identity Not on file Sexual Orientation Not on file Plan of Treatment Health Maintenance Due Date Last Done Comments Wellness Exam Medicare 1943 DTaP/TDaP/Td (1 - Tdap) 1958 Pneumococcal Vaccine 50+ (1 of 1 - PCV) 1989 Zoster (1 of 2) 1989 Bone Density Screening 2004 RSV or 60+ (1 - 1-d ose 75+ series) 2014 COVID-19 Vaccine ( - 2023-2 5 season) 2024 Influenza Vaccine (#1) 2025 Hepatitis B Vaccine Aged Out No longe r eligible based on patient's age to complete this topic Meningococcal B Vaccine Aged Out No l onger eligible based on patient's age to complete this topic Insurance MEDICARE [place] PART A AND B Member Subscriber Plan / Payer (Ef fective 2004-Present) Name:Hannah Escobedo Member ID:[id number] Relation to Subscriber:Self Name:Hannah Escobedo Subscriber ID:[id number] Payer ID:Not on file Group ID:Not on file Type:Not on file Address: [address] [id number]
== END 2025-03-19 23:59 | disposition home or self-care (01) ==
LOC: LAB.DROPOF 16:43
PROVIDERS: PCP Internal Medicine; Visit Provider Internal Medicine
DX: I25.10 Atherosclerotic heart disease of native coronary artery without angina pectoris (principal); I10 Essential (primary) hypertension; E78.5 Hyperlipidemia, unspecified; I48.0 Paroxysmal atrial fibrillation; E78.2 Mixed hyperlipidemia
CPT/HCPCS: 80053; 80061; 85025

== ENCOUNTER 2025-07-07 12:15 | Outpatient (CLI) | payer MEDICARE, OTHER, SELFPAY ==
[2025-07-07 17:13] LABS: Chloride 103 mmol/L (98-107); Potassium 4.7 mmoL/L (3.5-5.1); Sodium 137 mmol/L (136-145)
[2025-07-07 17:16] LABS: Alanine Aminotransferase 16 U/L (12-78); Alkaline Phosphatase 81 U/L (38-126); Aspartate Amino Transferase 32 U/L (14-36); Bilirubin,Total 0.4 mg/dl (0.2-1.3); Blood Urea Nitrogen 25 mg/dl (7-17); Cholesterol 207 mg/dl (140-200); Creatinine,Serum 1.20 mg/dl (0.52-1.04); Estimated Glomerular Filt Rate 43 ml/min (>60); GFR (African American) 52 ML/MIN (>60); Total Protein,Serum 6.8 g/dl (6.3-8.2); Triglycerides 91 mg/dl (30-150)
[2025-07-07 17:17] LABS: Calcium 9.9 mg/dl (8.4-10.2); Glucose 86 mg/dl (74-100); HDL Cholesterol 101 mg/dl (40-60)
[2025-07-07 20:08] LABS: Albumin Level 4.1 g/dl (3.5-5.0); Albumin/Globulin Ratio 1.5 (1.1-1.8); Anion Gap 10.7 mEq/L (5-15); Carbon Dioxide 28 mmol/L (22.0-30.0); Globulin 2.7 g/dL (1.3-3.2)
== END 2025-07-07 23:59 ==
LOC: LAB.DROPOF 07-08 09:43
PROVIDERS: PCP Internal Medicine; Visit Provider Internal Medicine
DX: J44.9 Chronic obstructive pulmonary disease, unspecified (principal); I10 Essential (primary) hypertension; E78.5 Hyperlipidemia, unspecified
CPT/HCPCS: 80053; 80061